=== PATIENT | male | born 1955 | race Caucasian/White ===

== ENCOUNTER → 2017-08-07 | Outpatient (CLI) | payer BC | END | disposition home or self-care (01) | LOC: EDSTATUS 07-23 13:00 → CVU 10:28 | PROVIDERS: ATTEND Internal Medicine Cardiovascular Disease | DX: I34.1 Nonrheumatic mitral (valve) prolapse (principal); I34.0 Nonrheumatic mitral (valve) insufficiency | CPT/HCPCS: 0399T; 93306 ==

== ENCOUNTER → 2017-11-25 | Outpatient (CLI) | payer BC | END | disposition home or self-care (01) | LOC: CFH 08:51 | PROVIDERS: ATTEND Physician Assistant | DX: I34.1 Nonrheumatic mitral (valve) prolapse (principal) | CPT/HCPCS: 78452; 93017; A9502 ==